=== PATIENT | female | born 1960 | race African-American/Black ===

== ENCOUNTER 2019-05-06 09:08 | Inpatient (IN) ==
[2019-05-06] MEDS ORDERED: Dextrose Gel 15 GM/37.5 ML TUBE PO PRN ×2 (18:37)
[2019-05-06] MEDS ORDERED: *HR* Dextrose 50 % in Water (Vial) 50 ML VIAL IVP PRN (18:37)
[2019-05-06] MEDS ORDERED: D5% in Water 1,000 ML IVC PRN (18:37)
[2019-05-06] MEDS: Gabapentin 100 MG CAPSULE PO SCH (20:48)
[2019-05-06] MEDS: Insulin LISPRO 300 UNITS/3 ML VIAL SQ SCH (20:55)
[2019-05-06] MEDS: (Linagliptin/Metformin Hcl [Jentadueto 2.5 Mg-1000 Mg) PO SCH (20:56)
[2019-05-06] MEDS: Triamcinolone Acet 0.1% CRM 15 GM TUBE TP SCH (21:17)
[2019-05-07] MEDS: Acetaminophen 325 MG TABLET PO PRN ×4 (00:44→20:56)
[2019-05-07 06:21] LABS: Basophils % 0.3 %; Eosinophils # 0.2 K/mcL (0.0-0.6); Eosinophils % 1.3 %; Hematocrit 30.1 % (35.3-44.9); Hemoglobin 9.3 g/dL (11.5-15.4); Immature Granulocytes % 0.7 % (0-4); Lymphocytes % 25.9 %; Mean Corpuscular HGB Conc 30.9 g/dL (31.6-35.5); Mean Corpuscular Hemoglobin 27.6 pg (28.0-33.3); Mean Corpuscular Volume 89.3 fL (83.0-100.0); Mean Platelet Volume 10.5 fL (9.4-12.4); Monocytes # 0.9 K/mcL (0.0-1.3); Monocytes % 7.6 %; Neutrophils # 7.5 K/mcL (1.6-8.9); Platelet Count 429 K/mcL (140-400); Red Blood Count 3.37 M/mcL (3.82-4.97); Red Cell Distribution Width 14.2 % (11.5-14.5); Segmented Neutrophils % 64.2 %; White Blood Count 11.6 K/mcL (4.3-11.1)
[2019-05-07 06:41] LABS: BUN/Creatinine Ratio 19 (6-26); Blood Urea Nitrogen 19 mg/dL (8-23); Calcium 9.1 mg/dL (8.6-10.3); Carbon Dioxide 29 mEq/L (23-29); Chloride 102 mEq/L (98-107); Glucose 196 mg/dL (70-105); Osmolality,Calculated 292 (280-300); Potassium 3.8 mEq/L (3.5-5.1); Sodium 137 mEq/L (136-145); eGFR For African Americans > 60 (> 60); eGFR For Non-African Americans 57 (> 60)
[2019-05-07] MEDS: BuPROPion XL (24 HR) 150 MG TABLET PO SCH (08:28)
[2019-05-07] MEDS: Gabapentin 100 MG CAPSULE PO SCH ×2 (08:28→20:56)
[2019-05-07] MEDS: Aspirin 81 MG TAB.CHEW PO SCH (08:28)
[2019-05-07] MEDS: Insulin LISPRO 300 UNITS/3 ML VIAL SQ SCH ×7 (08:29→20:56)
[2019-05-07] MEDS: (Linagliptin/Metformin Hcl [Jentadueto 2.5 Mg-1000 Mg) PO SCH ×2 (08:30→20:57)
[2019-05-07] MEDS: Triamcinolone Acet 0.1% CRM 15 GM TUBE TP SCH ×2 (08:30→20:57)
[2019-05-07] MEDS: Tolterodine LA (24 HR) 4 MG CAP.ER.24H PO SCH (10:00)
[2019-05-07 13:28] LABS: Estimated Average Glucose 186 mg/dl
[2019-05-07] MEDS: amLODIPine 5 MG TABLET PO SCH (17:11)
[2019-05-07] MEDS: Tolterodine LA (24 HR) 2 MG CAP.ER.24H PO SCH (17:11)
[2019-05-07] MEDS: Losartan/HCTZ 50-12.5 TABLET PO SCH (17:11)
[2019-05-07] MEDS: (Empagliflozin [Jardiance] 10 MG) PO SCH (17:13)
[2019-05-08] MEDS: Acetaminophen 325 MG TABLET PO PRN ×3 (04:59→21:09)
[2019-05-08] MEDS: Insulin LISPRO 300 UNITS/3 ML VIAL SQ SCH ×7 (08:18→21:01)
[2019-05-08] MEDS: Gabapentin 100 MG CAPSULE PO SCH ×2 (08:19→21:09)
[2019-05-08] MEDS: Tolterodine LA (24 HR) 4 MG CAP.ER.24H PO SCH (08:19)
[2019-05-08] MEDS: Aspirin 81 MG TAB.CHEW PO SCH (08:19)
[2019-05-08] MEDS: BuPROPion XL (24 HR) 150 MG TABLET PO SCH (08:19)
[2019-05-08] MEDS: Triamcinolone Acet 0.1% CRM 15 GM TUBE TP SCH ×2 (08:30→19:10)
[2019-05-08] MEDS: (Linagliptin/Metformin Hcl [Jentadueto 2.5 Mg-1000 Mg) PO SCH ×2 (08:30→19:10)
[2019-05-08] MEDS ORDERED: *HR* OxyCODONE Immed Rel 5 MG TABLET PO PRN (12:23)
[2019-05-08] MEDS: Losartan/HCTZ 50-12.5 TABLET PO SCH (17:15)
[2019-05-08] MEDS: amLODIPine 5 MG TABLET PO SCH (17:15)
[2019-05-08] MEDS: Tolterodine LA (24 HR) 2 MG CAP.ER.24H PO SCH (17:15)
[2019-05-08] MEDS: (Empagliflozin [Jardiance] 10 MG) PO SCH (17:17)
[2019-05-09] MEDS: Acetaminophen 325 MG TABLET PO PRN ×2 (04:34→13:43)
[2019-05-09 05:40] LABS: Hematocrit 30.3 % (35.3-44.9); Hemoglobin 9.5 g/dL (11.5-15.4); Mean Corpuscular HGB Conc 31.4 g/dL (31.6-35.5); Mean Corpuscular Hemoglobin 27.9 pg (28.0-33.3); Mean Corpuscular Volume 89.1 fL (83.0-100.0); Mean Platelet Volume 10.2 fL (9.4-12.4); Platelet Count 389 K/mcL (140-400); Red Cell Distribution Width 14.3 % (11.5-14.5); White Blood Count 11.5 K/mcL (4.3-11.1)
[2019-05-09 05:56] LABS: Albumin 3.8 g/dL (3.5-5.7); Albumin/Globulin Ratio 1.2 (1.1-2.2); Bilirubin,Total 0.4 mg/dL (0.3-1.0); Calcium 9.6 mg/dL (8.6-10.3); Globulin 3.2 g/dL (2.4-3.5); Potassium 4.4 mEq/L (3.5-5.1)
[2019-05-09] MEDS: Insulin LISPRO 300 UNITS/3 ML VIAL SQ SCH ×7 (07:52→20:14)
[2019-05-09] MEDS: (Linagliptin/Metformin Hcl [Jentadueto 2.5 Mg-1000 Mg) PO SCH ×2 (08:53→19:48)
[2019-05-09] MEDS: Tolterodine LA (24 HR) 4 MG CAP.ER.24H PO SCH ×2 (08:54→10:20)
[2019-05-09] MEDS: Gabapentin 100 MG CAPSULE PO SCH ×2 (08:57→20:15)
[2019-05-09] MEDS: BuPROPion XL (24 HR) 150 MG TABLET PO SCH (08:57)
[2019-05-09] MEDS: Aspirin 81 MG TAB.CHEW PO SCH (08:57)
[2019-05-09] MEDS: Triamcinolone Acet 0.1% CRM 15 GM TUBE TP SCH ×2 (09:00→19:48)
[2019-05-09] MEDS ORDERED: Acetaminophen 325 MG TABLET PO PRN (15:10)
[2019-05-09] MEDS: (Empagliflozin [Jardiance] 10 MG) PO SCH (18:01)
[2019-05-09] MEDS: amLODIPine 5 MG TABLET PO SCH (18:02)
[2019-05-09] MEDS: Losartan/HCTZ 50-12.5 TABLET PO SCH (18:02)
[2019-05-09] MEDS: Tolterodine LA (24 HR) 2 MG CAP.ER.24H PO SCH (18:02)
[2019-05-09] MEDS: Ibuprofen 600 MG TABLET PO PRN (18:13)
[2019-05-10] MEDS: (Linagliptin/Metformin Hcl [Jentadueto 2.5 Mg-1000 Mg) PO SCH ×2 (07:33→18:26)
[2019-05-10] MEDS: Tolterodine LA (24 HR) 4 MG CAP.ER.24H PO SCH (07:52)
[2019-05-10] MEDS: Gabapentin 100 MG CAPSULE PO SCH ×2 (07:52→20:06)
[2019-05-10] MEDS: Insulin LISPRO 300 UNITS/3 ML VIAL SQ SCH ×7 (07:52→20:06)
[2019-05-10] MEDS: BuPROPion XL (24 HR) 150 MG TABLET PO SCH (07:52)
[2019-05-10] MEDS: Aspirin 81 MG TAB.CHEW PO SCH (07:52)
[2019-05-10] MEDS: Triamcinolone Acet 0.1% CRM 15 GM TUBE TP SCH ×2 (08:06→18:26)
[2019-05-10] MEDS ORDERED: tiZANidine 4 MG TABLET PO SCH (09:45)
[2019-05-10] MEDS: Ibuprofen 600 MG TABLET PO PRN (12:48)
[2019-05-10] MEDS ORDERED: diazePAM 5 MG TABLET PO ONE (13:44)
[2019-05-10] MEDS ORDERED: *HR* OxyCODONE Immed Rel 5 MG TABLET PO PRN (13:44)
[2019-05-10] MEDS ORDERED: Ibuprofen 600 MG TABLET PO PRN (13:46)
[2019-05-10] MEDS ORDERED: diazePAM 5 MG TABLET PO PRN (14:10)
[2019-05-10] MEDS: Losartan/HCTZ 50-12.5 TABLET PO SCH (17:03)
[2019-05-10] MEDS: Tolterodine LA (24 HR) 2 MG CAP.ER.24H PO SCH (17:03)
[2019-05-10] MEDS: amLODIPine 5 MG TABLET PO SCH (17:03)
[2019-05-10] MEDS: tiZANidine 4 MG TABLET PO SCH ×2 (17:03→23:21)
[2019-05-10] MEDS: (Empagliflozin [Jardiance] 10 MG) PO SCH (18:06)
[2019-05-10] MEDS: *HR* OxyCODONE Immed Rel 5 MG TABLET PO PRN (20:06)
[2019-05-11] MEDS: *HR* OxyCODONE Immed Rel 5 MG TABLET PO PRN ×3 (02:30→19:28)
[2019-05-11] MEDS: Insulin LISPRO 300 UNITS/3 ML VIAL SQ SCH ×7 (06:14→19:28)
[2019-05-11] MEDS: BuPROPion XL (24 HR) 150 MG TABLET PO SCH (06:16)
[2019-05-11] MEDS: Tolterodine LA (24 HR) 4 MG CAP.ER.24H PO SCH (06:16)
[2019-05-11] MEDS: Aspirin 81 MG TAB.CHEW PO SCH (06:16)
[2019-05-11] MEDS: tiZANidine 4 MG TABLET PO SCH ×4 (06:16→23:10)
[2019-05-11] MEDS: Gabapentin 100 MG CAPSULE PO SCH ×2 (06:16→19:28)
[2019-05-11] MEDS: Triamcinolone Acet 0.1% CRM 15 GM TUBE TP SCH ×2 (07:39→19:07)
[2019-05-11] MEDS: (Linagliptin/Metformin Hcl [Jentadueto 2.5 Mg-1000 Mg) PO SCH ×2 (07:47→19:07)
[2019-05-11] MEDS: amLODIPine 5 MG TABLET PO SCH (18:28)
[2019-05-11] MEDS: Tolterodine LA (24 HR) 2 MG CAP.ER.24H PO SCH (18:28)
[2019-05-11] MEDS: Losartan/HCTZ 50-12.5 TABLET PO SCH (18:28)
[2019-05-11] MEDS: (Empagliflozin [Jardiance] 10 MG) PO SCH (18:31)
[2019-05-12] MEDS: tiZANidine 4 MG TABLET PO SCH ×4 (05:01→23:05)
[2019-05-12] MEDS: *HR* OxyCODONE Immed Rel 5 MG TABLET PO PRN ×3 (05:04→20:30)
[2019-05-12] MEDS: (Linagliptin/Metformin Hcl [Jentadueto 2.5 Mg-1000 Mg) PO SCH ×2 (08:06→20:47)
[2019-05-12] MEDS: Insulin LISPRO 300 UNITS/3 ML VIAL SQ SCH ×7 (08:12→20:31)
[2019-05-12] MEDS: Tolterodine LA (24 HR) 4 MG CAP.ER.24H PO SCH (08:13)
[2019-05-12] MEDS: Gabapentin 100 MG CAPSULE PO SCH ×3 (08:13→20:29)
[2019-05-12] MEDS: Triamcinolone Acet 0.1% CRM 15 GM TUBE TP SCH ×2 (08:13→21:07)
[2019-05-12] MEDS: Aspirin 81 MG TAB.CHEW PO SCH (08:13)
[2019-05-12] MEDS: BuPROPion XL (24 HR) 150 MG TABLET PO SCH (08:13)
[2019-05-12] MEDS: predniSONE 20 MG TABLET PO SCH (12:20)
[2019-05-12] MEDS: (Empagliflozin [Jardiance] 10 MG) PO SCH (16:58)
[2019-05-12] MEDS: amLODIPine 5 MG TABLET PO SCH (17:03)
[2019-05-12] MEDS: Tolterodine LA (24 HR) 2 MG CAP.ER.24H PO SCH (17:04)
[2019-05-12] MEDS: Insulin DETEMIR 100 UNIT/ML X5UNITS SQ SCH (20:31)
[2019-05-13] MEDS: *HR* OxyCODONE Immed Rel 5 MG TABLET PO PRN ×2 (02:58→07:28)
[2019-05-13] MEDS: tiZANidine 4 MG TABLET PO SCH ×4 (05:09→22:49)
[2019-05-13 05:11] LABS: Hematocrit 28.5 % (35.3-44.9); Hemoglobin 8.9 g/dL (11.5-15.4); Mean Corpuscular HGB Conc 31.2 g/dL (31.6-35.5); Mean Corpuscular Hemoglobin 27.6 pg (28.0-33.3); Mean Corpuscular Volume 88.5 fL (83.0-100.0); Mean Platelet Volume 10.7 fL (9.4-12.4); Platelet Count 351 K/mcL (140-400); Red Blood Count 3.22 M/mcL (3.82-4.97); Red Cell Distribution Width 14.3 % (11.5-14.5); White Blood Count 14.8 K/mcL (4.3-11.1)
[2019-05-13 05:24] LABS: BUN/Creatinine Ratio 32 (6-26); Blood Urea Nitrogen 32 mg/dL (8-23); Calcium 9.7 mg/dL (8.6-10.3); Carbon Dioxide 29 mEq/L (23-29); Chloride 101 mEq/L (98-107); Glucose 298 mg/dL (70-105); Magnesium 2.3 mg/dL (1.6-2.6); Osmolality,Calculated 302 (280-300); Potassium 4.7 mEq/L (3.5-5.1); Sodium 137 mEq/L (136-145); eGFR For African Americans > 60 (> 60); eGFR For Non-African Americans 57 (> 60)
[2019-05-13] MEDS: Aspirin 81 MG TAB.CHEW PO SCH (07:27)
[2019-05-13] MEDS: Insulin LISPRO 300 UNITS/3 ML VIAL SQ SCH ×7 (07:28→21:15)
[2019-05-13] MEDS: BuPROPion XL (24 HR) 150 MG TABLET PO SCH (07:28)
[2019-05-13] MEDS: predniSONE 20 MG TABLET PO SCH (07:28)
[2019-05-13] MEDS: Gabapentin 100 MG CAPSULE PO SCH ×3 (07:28→21:15)
[2019-05-13] MEDS: Tolterodine LA (24 HR) 4 MG CAP.ER.24H PO SCH (07:28)
[2019-05-13] MEDS: Triamcinolone Acet 0.1% CRM 15 GM TUBE TP SCH ×2 (07:30→21:17)
[2019-05-13] MEDS: (Linagliptin/Metformin Hcl [Jentadueto 2.5 Mg-1000 Mg) PO SCH ×2 (07:30→21:24)
[2019-05-13] MEDS: (Empagliflozin [Jardiance] 10 MG) PO SCH (16:46)
[2019-05-13] MEDS: amLODIPine 5 MG TABLET PO SCH (17:08)
[2019-05-13] MEDS: Tolterodine LA (24 HR) 2 MG CAP.ER.24H PO SCH (17:08)
[2019-05-13] MEDS: Insulin DETEMIR 100 UNIT/ML X5UNITS SQ SCH (21:15)
[2019-05-14] MEDS: tiZANidine 4 MG TABLET PO SCH ×4 (06:10→23:30)
[2019-05-14] MEDS: Aspirin 81 MG TAB.CHEW PO SCH (08:30)
[2019-05-14] MEDS: BuPROPion XL (24 HR) 150 MG TABLET PO SCH (08:30)
[2019-05-14] MEDS: predniSONE 20 MG TABLET PO SCH (08:30)
[2019-05-14] MEDS: Gabapentin 100 MG CAPSULE PO SCH ×3 (08:30→21:47)
[2019-05-14] MEDS: Tolterodine LA (24 HR) 4 MG CAP.ER.24H PO SCH (08:30)
[2019-05-14] MEDS: Insulin LISPRO 300 UNITS/3 ML VIAL SQ SCH ×7 (08:33→21:50)
[2019-05-14] MEDS: Triamcinolone Acet 0.1% CRM 15 GM TUBE TP SCH ×2 (08:35→21:47)
[2019-05-14] MEDS: Sennosides 8.6 MG TABLET PO PRN (08:42)
[2019-05-14] MEDS: *HR* OxyCODONE Immed Rel 5 MG TABLET PO PRN ×2 (08:42→21:49)
[2019-05-14] MEDS: (Linagliptin/Metformin Hcl [Jentadueto 2.5 Mg-1000 Mg) PO SCH ×2 (09:03→21:50)
[2019-05-14] MEDS: amLODIPine 5 MG TABLET PO SCH (17:42)
[2019-05-14] MEDS: Tolterodine LA (24 HR) 2 MG CAP.ER.24H PO SCH (17:43)
[2019-05-14] MEDS: (Empagliflozin [Jardiance] 10 MG) PO SCH (17:44)
[2019-05-14] MEDS: Insulin DETEMIR 100 UNIT/ML X5UNITS SQ SCH (21:50)
[2019-05-15] MEDS: tiZANidine 4 MG TABLET PO SCH ×4 (06:40→22:06)
[2019-05-15] MEDS: predniSONE 20 MG TABLET PO SCH (09:36)
[2019-05-15] MEDS: Aspirin 81 MG TAB.CHEW PO SCH (09:37)
[2019-05-15] MEDS: BuPROPion XL (24 HR) 150 MG TABLET PO SCH (09:37)
[2019-05-15] MEDS: Gabapentin 100 MG CAPSULE PO SCH ×3 (09:37→22:06)
[2019-05-15] MEDS: Tolterodine LA (24 HR) 4 MG CAP.ER.24H PO SCH (09:37)
[2019-05-15] MEDS: Triamcinolone Acet 0.1% CRM 15 GM TUBE TP SCH ×2 (09:37→22:07)
[2019-05-15] MEDS: Insulin LISPRO 300 UNITS/3 ML VIAL SQ SCH ×7 (09:38→22:05)
[2019-05-15] MEDS: (Linagliptin/Metformin Hcl [Jentadueto 2.5 Mg-1000 Mg) PO SCH ×2 (09:47→22:08)
[2019-05-15] MEDS: *HR* OxyCODONE Immed Rel 5 MG TABLET PO PRN ×2 (10:15→22:07)
[2019-05-15] MEDS: Sennosides 8.6 MG TABLET PO PRN ×2 (10:15→22:06)
[2019-05-15] MEDS: amLODIPine 5 MG TABLET PO SCH (17:50)
[2019-05-15] MEDS: Tolterodine LA (24 HR) 2 MG CAP.ER.24H PO SCH (17:50)
[2019-05-15] MEDS: (Empagliflozin [Jardiance] 10 MG) PO SCH (17:50)
[2019-05-15] MEDS: Insulin DETEMIR 100 UNIT/ML X5UNITS SQ SCH (22:05)
[2019-05-16] MEDS: tiZANidine 4 MG TABLET PO SCH ×4 (06:34→22:37)
[2019-05-16] MEDS: Insulin LISPRO 300 UNITS/3 ML VIAL SQ SCH ×7 (07:37→20:02)
[2019-05-16] MEDS: BuPROPion XL (24 HR) 150 MG TABLET PO SCH (07:38)
[2019-05-16] MEDS: Gabapentin 100 MG CAPSULE PO SCH ×3 (07:38→20:01)
[2019-05-16] MEDS: Tolterodine LA (24 HR) 4 MG CAP.ER.24H PO SCH (07:38)
[2019-05-16] MEDS: predniSONE 20 MG TABLET PO SCH (07:38)
[2019-05-16] MEDS: Aspirin 81 MG TAB.CHEW PO SCH (07:39)
[2019-05-16] MEDS: *HR* OxyCODONE Immed Rel 5 MG TABLET PO PRN ×2 (07:39→18:41)
[2019-05-16] MEDS: Triamcinolone Acet 0.1% CRM 15 GM TUBE TP SCH ×2 (07:40→20:03)
[2019-05-16] MEDS: (Linagliptin/Metformin Hcl [Jentadueto 2.5 Mg-1000 Mg) PO SCH ×2 (07:40→20:03)
[2019-05-16] MEDS: (Empagliflozin [Jardiance] 10 MG) PO SCH (18:23)
[2019-05-16] MEDS: amLODIPine 5 MG TABLET PO SCH (18:41)
[2019-05-16] MEDS: Tolterodine LA (24 HR) 2 MG CAP.ER.24H PO SCH (18:41)
[2019-05-16] MEDS: Sennosides 8.6 MG TABLET PO PRN (20:00)
[2019-05-16] MEDS ORDERED: Insulin LISPRO 300 UNITS/3 ML VIAL SQ ONE (20:00)
[2019-05-16] MEDS: Insulin DETEMIR 100 UNIT/ML X5UNITS SQ SCH (20:01)
[2019-05-17] MEDS: tiZANidine 4 MG TABLET PO SCH ×4 (05:13→21:59)
[2019-05-17] MEDS: Insulin LISPRO 300 UNITS/3 ML VIAL SQ SCH ×7 (07:48→21:59)
[2019-05-17] MEDS: BuPROPion XL (24 HR) 150 MG TABLET PO SCH (09:33)
[2019-05-17] MEDS: Aspirin 81 MG TAB.CHEW PO SCH (09:33)
[2019-05-17] MEDS: Tolterodine LA (24 HR) 4 MG CAP.ER.24H PO SCH (09:34)
[2019-05-17] MEDS: Gabapentin 100 MG CAPSULE PO SCH ×3 (09:34→21:58)
[2019-05-17] MEDS: predniSONE 20 MG TABLET PO SCH (09:34)
[2019-05-17] MEDS: Triamcinolone Acet 0.1% CRM 15 GM TUBE TP SCH ×2 (09:36→22:02)
[2019-05-17] MEDS: *HR* OxyCODONE Immed Rel 5 MG TABLET PO PRN (09:38)
[2019-05-17] MEDS: Tolterodine LA (24 HR) 2 MG CAP.ER.24H PO SCH (17:32)
[2019-05-17] MEDS: amLODIPine 5 MG TABLET PO SCH (17:32)
[2019-05-17] MEDS: Insulin DETEMIR 100 UNIT/ML X5UNITS SQ SCH (22:00)
[2019-05-18] MEDS: tiZANidine 4 MG TABLET PO SCH ×2 (05:20→12:06)
[2019-05-18 07:00] VITALS: BP 143/79
[2019-05-18] MEDS: Insulin LISPRO 300 UNITS/3 ML VIAL SQ SCH ×4 (07:58→12:06)
[2019-05-18] MEDS: Triamcinolone Acet 0.1% CRM 15 GM TUBE TP SCH (07:59)
[2019-05-18] MEDS: Tolterodine LA (24 HR) 4 MG CAP.ER.24H PO SCH (08:02)
[2019-05-18] MEDS: BuPROPion XL (24 HR) 150 MG TABLET PO SCH (08:02)
[2019-05-18] MEDS: Aspirin 81 MG TAB.CHEW PO SCH (08:02)
[2019-05-18] MEDS: Gabapentin 100 MG CAPSULE PO SCH (08:03)
[2019-05-18] MEDS: *HR* OxyCODONE Immed Rel 5 MG TABLET PO PRN (08:06)
== END 2019-05-18 12:20 | disposition home or self-care (01) | DRG 57 ==
LOC: INPGRE 17:41
PROVIDERS: ADMIT Family Medicine; ATTEND Family Medicine